=== PATIENT | female | born 1995 | race Caucasian/White ===

== ENCOUNTER 2017-04-30 10:46 | Emergency (ER) | payer BC, OTHER ==
[~2017-04-30] VITALS: Ht 162.6 cm; Wt 86.2 kg
--- NOTE | 2017-04-30 11:46 | ED GU-Female ---
General Chief Complaint: Abdominal/GI Problems Stated Complaint: ABD AND BACK PAIN/ RT SIDE Nursing Triage Note: pt reports r flank pain and pelvic pain starting this am. Pt also reports n/v. Nursing Sepsis Screen: No Definite Risk Source: patient, other (friend) Exam Limitations: no limitations History of Present Illness Time seen by provider: 11:41 Initial Comments 21-year-old female patient presents to the emergency department complains of right flank pain radiating to the lower abdomen and right low back. Does report nausea and vomiting. Sudden onset at 0900 this a.m. Denies diarrhea or fever. Denies history of similar symptoms. Does have a history of urinary tract infections, but feels different than today. Timing/Duration: this morning (0900), constant ((can't get comfortable)) Severity/Quality: aching, stabbing Location: right flank Radiation: back (rt low back), other (suprapubic) Prior Genitourinary Problems: none Modifying Factors: Worsens With Urinating Allergies and Home Medications Allergies Coded Allergies: No Known Drug Allergies (Unverified , 04/30/17) Home Medications Ciprofloxacin HCl 500 Mg Tablet, 500 MG PO BID, #14 Ref 0 Prescribed by: ADAM SAMANO on 04/30/17 1348 Hydrocodone/Acetaminophen 1 Each Tablet, 1 EACH PO Q4H PRN for PAIN, #10 Ref 0 Prescribed by: ADAM SAMANO on 04/30/17 1348 Ondansetron 8 Mg Tab.rapdis, 8 MG PO Q6H PRN for NAUSEA/VOMITING-1ST LINE, #10 Ref 0 Prescribed by: ADAM SAMANO on 04/30/17 1348 Phenazopyridine HCl 200 Mg Tablet, 1 TAB PO Q8H PRN for SPASMS, #14 Ref 0 Prescribed by: ADAM SAMANO on 04/30/17 1348 Constitutional: No chills, diaphoresis, No fever, No malaise Respiratory: No cough, No short of breath Cardiovascular: No chest pain, No syncope Gastrointestinal: abdominal pain, No constipation, No diarrhea, nausea, vomiting Genitourinary: see HPI, denies discharge, denies dysuria, denies frequency, flank pain, denies hematuria, pain, other (bladder spasms with urination.) : No Musculoskeletal: see HPI, back pain (rt low back) Skin: no symptoms reported Psychiatric/Neurological: No Symptoms Reported All Other Systemes Reviewed Negative Unless Noted: Yes (Negative excepted noted.) Past Zavoxwm-Ppmdbl-Gvhrct Hx Patient Social History Alcohol Use: Regular Use Alcohol Beverage of Choice: Beer, Vodka Recreational Drug Use: No Smoking Status: Never a Smoker Recent Foreign Travel: No Contact w/Someone Who Travel: No Recent Infectious Disease Expo: No Recent Hopitalizations: No Physical Abuse: No Sexual Abuse: No Mistreated: No Fear: No Seasonal Allergies Seasonal Allergies: No Surgeries History of Surgeries: No Respiratory History of Respiratory Disorde: No Cardiovascular History of Cardiac Disorders: No Neurological History of Neurological Disord: No Reproductive System : No Genitourinary History of Genitourinary Disor: No Gastrointestinal History of Gastrointestinal Di: No Musculoskeletal History of Musculoskeletal Dis: No Endocrine History of Endocrine Disorders: No HEENT History of HEENT Disorders: No Cancer History of Cancer: No Psychosocial History of Psychiatric Problem: No Suicide Risk Score: 0 Integumentary History of Skin or Integumenta: No Blood Transfusions History of Blood Disorders: No Reviewed Nursing Assessment Reviewed/Agree w Nursing PMH: Yes Family Medical History Significant Family History: No Pertinent Family Hx Physical Exam Vital Signs Vital Sign - Last 12Hours 04/30/ 11:34 Temp 96.1 Pulse 78 Resp 18 B/P (MAP) 137/80 Pulse Ox 100 Capillary Refill : Less Than 3 Seconds General Appearance: WD/WN, no apparent distress HEENT: PERRL/EOMI, pharynx normal Neck: supple, normal inspection Cardiovascular: normal peripheral pulses, regular rate, rhythm, no edema, no murmur Respiratory: lungs clear, normal breath sounds, no respiratory distress, no accessory muscle use Gastrointestinal: normal bowel sounds, soft, no organomegaly, No distended, guarding (suprapubic and rt flank), No rebound, tenderness (suprapubic and rt flank) Back: normal inspection, CVA tenderness (R), No CVA tenderness (L) Extremities: no pedal edema, normal capillary refill Neurologic/Psychiatric: alert, oriented x 3, other (anxious) Skin: normal color, diaphoresis Progress/Results/Core Measures Results/Orders Lab Results My Orders Medications Given in ED Vital Signs/I&O Blood Pressure Mean: 99 Diagnostic Imaging Diagonstic Imaging: CT Plain Films/CT/US/NM/MRI: abdomen, pelvis Comments CT abdomen: Faint nonobstructive left renal calculi are noted. Note is also made of somewhat hyperdense appearance to the calyces, bilaterally. There is also asymmetric mild right-sided hydroureteronephrosis and abnormal periureteral fat stranding. No calculi are seen along the course of the right ureter. There is no hydroureteronephrosis or evidence of obstruction on the left. Urinary bladder is decompressed. No calculi are seen within urinary bladder. No focal renal mass type lesions are identified on this noncontrast exam. The spleen, liver, pancreas, and adrenal glands have an unremarkable noncontrast CT appearance. Small bowel loops are nondistended. Normal appendix is identified. There is no loculated fluid collection, free fluid, nor free air within the abdomen. No abnormal mesenteric or retroperitoneal adenopathy is seen. Bony structures show no gross acute abnormalities. CT pelvis: Urinary bladder is unopacified. No calculi are seen within urinary bladder. Right ovarian cystic structure measures 2.3 cm. There is trace free fluid within the pelvis. There is no loculated fluid collection or free air. No abnormal lymph nodes are seen. Bony structures show no gross acute abnormalities. IMPRESSION: 1. Asymmetric mild right-sided hydroureteronephrosis. However, no ureteral calculi are identified. Findings could be on the basis of recently passed stone. 2. Multiple faint nonobstructive left renal calculi. 3. Probable right ovarian cyst. 4. Minimal free fluid within the pelvis; possibly physiologic. Dictated on workstation # [id number] Reviewed: Reviewed by Me (radiology report reviewed by me) Departure Communication (Admissions) Progress Notes All diagnostic and laboratory findings discussed with the patient. Patient does show findings of hydroureteronephrosis suspicious for a recently passed kidney stone. Patient reports feeling much better with medications. Plan for discharge to home. Patient to return to the emergency department for worsened symptoms or any other concerns. Impression Impression: Primary Impression: Hydroureteronephrosis Additional Impressions: Right flank pain Ovarian cyst Qualified Codes: N83.201 - Unspecified ovarian cyst, right side Disposition: HOME, SELF-CARE Condition: Improved Departure-Patient Inst. Decision time for Depature: 13:25 Referrals: NO,LOCAL PHYSICIAN (PCP/Family) Primary Care Physician Patient Instructions: Renal Colic (DC), Ovarian Cyst (DC) Add. Discharge Instructions: All discharge instructions reviewed with patient and/or family. Voiced understanding. Medications as directed. Motrin 800 mg by mouth every 8 hours as needed for pain. Drink plenty of fluids. Follow-up with [facility] or the family practitioner of your choice for recheck and for possible need of an outpatient ultrasound to confirm resolution of the ovarian cyst. Call for appointment time. Return to the emergency department for worsened pain , fever, vomiting, abdominal swelling, inability to urinate, blood in the urine , or any other concerns. Scripts Ondansetron (Ondansetron Odt) 8 Mg Tab.rapdis 8 MG PO Q6H Y for NAUSEA/VOMITING-1ST LINE, #10 TAB 0 Refills Prov: ADAM SAMANO 04/30/17 Hydrocodone/Acetaminophen (Hydrocodon -Acetaminophen 5-325) 1 Each Tablet 1 EACH PO Q4H Y for PAIN, #10 TAB 0 Refills Prov: ADAM SAMANO 04/30/17 Phenazopyridine HCl (Pyridium) 200 Mg Tablet 1 TAB PO Q8H Y for SPASMS, #14 TAB 0 Refills Prov: ADAM SAMANO 04/30/17 Ciprofloxacin HCl (Ciprofloxacin HCl) 500 Mg Tablet 500 MG PO BID, #14 TAB 0 Refills Prov: ADAM SAMANO 04/30/17 Work/School Note: Local Medical Staff Listing, Work Release Form Date Seen in the Emergency Department: Apr 30, 2017 Return to Work: May 01, 2017 Restrictions: No Restrictions ADAM SAMANO Apr 30, 2017 11:46
[2017-04-30 11:49] LABS: BASOPHILS % (AUTO) 0 % (0-10); EOSINOPHILS # (AUTO) 0.1 10^3/uL (0.0-0.3); EOSINOPHILS % (AUTO) 1 % (0-10); LYMPHOCYTES # (AUTO) 3.3 X 10^3 (1.0-4.0); LYMPHOCYTES % (AUTO) 25 % (12-44); MEAN CORPUSCULAR HEMOGLOBIN 29 PG (25-34); MEAN CORPUSCULAR HGB CONC 33 G/DL (32-36); MEAN CORPUSCULAR VOLUME 88 FL (80-99); MEAN PLATELET VOLUME 11.6 FL (7.4-10.4); MONOCYTES % (AUTO) 8 % (0-12); NEUTROPHILS # (AUTO) 8.8 X 10^3 (1.8-7.8); NEUTROPHILS % (AUTO) 66 % (42-75); PLATELET COUNT 286 10^3/uL (130-400); RED BLOOD COUNT 4.54 10^6/uL (4.35-5.85); RED CELL DISTRIBUTION WIDTH 13.1 % (10.0-14.5); WHITE BLOOD COUNT 13.2 10^3/uL (4.3-11.0)
[2017-04-30] MEDS ORDERED: KETOROLAC 30 MG/ML VIAL IVP STA (11:53)
[2017-04-30] MEDS ORDERED: NS IV 1000 ML 1,000 ML IV ONE (11:53)
[2017-04-30 12:00] LABS: ALANINE AMINOTRANSFERASE 14 U/L (0-55); ALBUMIN 4.1 GM/DL (3.2-4.5); ANION GAP 8 MMOL/L (5-14); ASPARTATE AMINO TRANSFERASE 14 U/L (5-34); BILIRUBIN,TOTAL 0.3 MG/DL (0.1-1.0); BLOOD UREA NITROGEN 9 MG/DL (7-18); BUN/CREATININE RATIO 12; CALCIUM 9.4 MG/DL (8.5-10.1); CARBON DIOXIDE 21 MMOL/L (21-32); CHLORIDE 109 MMOL/L (98-107); CREATININE SERUM 0.73 MG/DL (0.60-1.30); GFR ESTIMATED > 60; GLUCOSE 107 MG/DL (70-105); POTASSIUM 3.8 MMOL/L (3.6-5.0); SODIUM 138 MMOL/L (135-145)
[2017-04-30] MEDS ORDERED: ONDANSETRON 4 MG/2 ML (SDV) Z0FRAN IVP ONE ×2 (12:00→13:15)
[2017-04-30 12:05] LABS: BILIRUBIN,URINE NEGATIVE (NEGATIVE); KETONES,URINE NEGATIVE (NEGATIVE); LEUKOCYTE ESTERASE ,URINE 2+ (NEGATIVE); NITRITE,URINE NEGATIVE (NEGATIVE); PH,URINE 6.5 (5-9); PROTEIN,URINE NEGATIVE (NEGATIVE); UROBILINOGEN,URINE NORMAL (NORMAL)
[2017-04-30] MEDS ORDERED: morphine INJ 10 MG/ML 1ML (SYR OR VIAL) IVP STA (13:11)
--- NOTE | 2017-04-30 13:13 | Diagnostic Imaging Report ---
PROCEDURE: CT urinary tract, rule out kidney stone. TECHNIQUE: Multiple contiguous axial images were obtained through the abdomen and pelvis without the use of intravenous contrast. INDICATION: Right lower quadrant abdominal pain. COMPARISON: None. FINDINGS: Included portions of the lung bases are clear. CT abdomen: Faint nonobstructive left renal calculi are noted. Note is also made of somewhat hyperdense appearance to the calyces, bilaterally. There is also asymmetric mild right-sided hydroureteronephrosis and abnormal periureteral fat stranding. No calculi are seen along the course of the right ureter. There is no hydroureteronephrosis or evidence of obstruction on the left. Urinary bladder is decompressed. No calculi are seen within urinary bladder. No focal renal mass type lesions are identified on this noncontrast exam. The spleen, liver, pancreas, and adrenal glands have an unremarkable noncontrast CT appearance. Small bowel loops are nondistended. Normal appendix is identified. There is no loculated fluid collection, free fluid, nor free air within the abdomen. No abnormal mesenteric or retroperitoneal adenopathy is seen. Bony structures show no gross acute abnormalities. CT pelvis: Urinary bladder is unopacified. No calculi are seen within urinary bladder. Right ovarian cystic structure measures 2.3 cm. There is trace free fluid within the pelvis. There is no loculated fluid collection or free air. No abnormal lymph nodes are seen. Bony structures show no gross acute abnormalities. IMPRESSION: 1. Asymmetric mild right-sided hydroureteronephrosis. However, no ureteral calculi are identified. Findings could be on the basis of recently passed stone. 2. Multiple faint nonobstructive left renal calculi. 3. Probable right ovarian cyst. 4. Minimal free fluid within the pelvis; possibly physiologic. Dictated by: Dictated on workstation # [id number]
[2017-04-30] MEDS ORDERED: CIPR500T4 PO (13:48)
[2017-04-30] MEDS ORDERED: PHEN-640 PO (13:48)
[2017-04-30] MEDS ORDERED: ONDA8TAB13 PO (13:48)
[2017-04-30] MEDS ORDERED: HYDR-3812 PO (13:48)
[2017-04-30 13:56] VITALS: BP 119/90
== END 2017-04-30 13:56 | disposition home or self-care (01) ==
LOC: ER 10:51
DX: N13.30 Unspecified hydronephrosis (principal); N83.201 Unspecified ovarian cyst, right side
CPT/HCPCS: 36415; 74176; 80053; 81000; 84703; 85025; 87088